=== PATIENT | female | born 1970 | race Hispanic/Latino ===

== ENCOUNTER 2019-04-22 15:10 | Emergency (ER) | payer SELFPAY ==
[2019-04-22] MEDS ORDERED: CEFTRIAXONE SODIUM 1 GM ONE (16:17)
[2019-04-22] MEDS ORDERED: LIDOCAINE HCL-MPF 1% 2ML VIAL ONE (16:17)
== END 2019-04-22 16:45 | disposition home or self-care (01) ==
LOC: EDH 15:10
DX: L97.519 Non-pressure chronic ulcer of other part of right foot with unspecified severity (principal); L03.115 Cellulitis of right lower limb
CPT/HCPCS: 73620; 96372; 99284; J0696; J3490